=== PATIENT | female | born 1990 | race Caucasian/White ===

== ENCOUNTER 2018-01-05 22:39 | Emergency (ER) | payer OTHER ==
--- NOTE | 2018-01-05 23:35 | RAD ---
EXAM: CT Head Without Intravenous Contrast EXAM DATE/TIME: 01/05/2018 11:17 PM CLINICAL HISTORY: 27 years old, female; Injury or trauma; Fall; Additional info: Fall - head injury - + loc TECHNIQUE: Axial computed tomography images of the head/brain without intravenous contrast. All CT scans at this facility use at least one of these dose optimization techniques: automated exposure control; mA and/or kV adjustment per patient size (includes targeted exams where dose is matched to clinical indication); or iterative reconstruction. COMPARISON: No relevant prior studies available. FINDINGS: Brain: Normal. No hemorrhage. No significant white matter disease. No edema. Ventricles: Normal. No ventriculomegaly. Bones/joints: Normal. No acute fracture. Sinuses: Normal as visualized. No acute sinusitis. Mastoid air cells: Normal as visualized. No mastoid effusion. Soft tissues: Normal. IMPRESSION: No acute intracranial pathology. To contact [facility] with a general question: [facility] - [phone] For direct physician to physician contact: Physician Hotline - [phone] [facility] ([facility] Facility ID #[id number])
[2018-01-05 23:50] LABS: ABS Basophils 0.1 10^3/ul (0-0.2); ABS Eosinophils 0.2 10^3/ul (0-0.6); ABS Lymphocytes 1.6 10^3/ul (1.0-4.8); ABS Monocytes 0.6 10^3/ul (0-0.8); ABS Neutrophils 7.9 10^3/ul (1.5-7.7); ABS Nucleated RBC 0 10^3/ul; Eosinophil % 1.5 % (0-6); Hematocrit 39 % (35-47); Hemoglobin 13.2 g/dl (12.0-16.0); Lymphocyte % 15.1 % (25-47); Mean Corpuscular HGB Conc 34 g/dl (31-36); Mean Corpuscular Hemoglobin 31 pg (27-31); Mean Corpuscular Volume 92 fL (80-97); Mean Platelet Volume 9.5 um3 (7.4-10.4); Nucleated Red Blood Cells % 0.1; Platelet Count 137 10^3/ul (150-450); Red Blood Count 4.27 10^6/ul (4.00-5.40); Red Cell Distribution Width 13 % (10.5-15); White Blood Count 10.3 10^3/ul (3.5-10.8)
[2018-01-06 00:08] LABS: EGFR Non-African American 84.8 (>60)
[2018-01-06 01:02] VITALS: BP 112/82
--- NOTE | 2018-01-06 01:32 | ED ---
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 She states she was outside smoking a cigarette "very fast" when she began to feel lightheaded. Endorses positive LOC. She does not recall falling, however she awoke on the ground. Others were at her side stating she fell back and hit the posterior scalp and incurred a posterior scalp laceration. She endorses a headache currently a 3/, constant and throbbing. She states she has had previous syncopal episodes, but usually secondary to dehydration. She's never had a syncopal episode while smoking a cigarette. Last echo episode was approximately 3/10 years ago. She denies any known cardiac history. She is an albuterol inhaler but has not used it for over 3 months she has not required it. - History Of Current Complaint Chief Complaint: EDSyncope Time Seen by Provider: 01/05/18 22:51 Hx Obtained From: Patient Onset/Duration: Sudden Onset Timing: Constant Associated Head Trauma: Yes Aggravating Factor(s): Nothing Alleviating Factor(s): Nothing Associated Signs And Symptoms: Negative - Risk Factors Cardiac Risk Factors: Negative Risk Factor(s): Negative - Allergies/Home Medications Allergies/Adverse Reactions: Allergies Allergy/AdvReac Type Severity Reaction Status Date / Time No Known Allergies Allergy Verified 01/05/18 22:47 Home Medications: Home Medications NK [No Home Medications Reported] 01/05/18 [History Confirmed 01/05/18] PMH/Surg Hx/FS Hx/Imm Hx Previously Healthy: Yes - Immunization History Hx Pertussis Vaccination: No Immunizations Up to Date: Yes Infectious Disease History: Yes Infectious Disease History: Denies: Traveled Outside the [place] in Last 30 Days - Social History Occupation: Unemployed Lives: Alone - correctional facility Alcohol Use: None Hx Substance Use: No Substance Use Type: Reports: None Smoking Status (MU): Light Every Day Tobacco Smoker Review of Systems Constitutional: Negative Negative: Fever, Chills, Fatigue, Skin Diaphoresis Negative: Palpitations, Chest Pain Negative: Shortness Of Breath, Cough Negative: Abdominal Pain, Vomiting, Diarrhea, Nausea Negative: Arthralgia, Myalgia Positive: Other - 4.5cm laceration posterior scalp Neurological: Negative All Other Systems Reviewed And Are Negative: Yes Physical Exam Triage Information Reviewed: Yes Vital Signs On Initial Exam: Initial Vitals Temp Pulse Resp BP Pulse Ox 97.6 F 58 16 108/78 98 01/05/18 22:40 01/05/18 22:40 01/05/18 22:40 01/05/18 22:40 01/05/18 22:40 Vital Signs Reviewed: Yes Appearance: Positive: Well-Appearing, Well-Nourished Skin: Positive: Skin Color Reflects Adequate Perfusion, Other - 4.5cm laceration posterior scalp Head/Face: Positive: Normal Head/Face Inspection Eyes: Positive: EOMI, MELI, Conjunctiva Clear Neck: Positive: Supple, Nontender, No Lymphadenopathy Respiratory/Lung Sounds: Positive: Clear to Auscultation, Breath Sounds Present Cardiovascular: Positive: RRR, Pulses are Symmetrical in both Upper and Lower Extremities Musculoskeletal: Positive: Strength/ROM Intact Neurological: Positive: Sensory/Motor Intact, Alert, Oriented to Person Place, Time, Speech Normal Psychiatric: Positive: Normal, Affect/Mood Appropriate AVPU Assessment: Alert Diagnostics - Vital Signs Vital Signs Temp Pulse Resp BP Pulse Ox 01/06/18 01:21 97.5 F 62 12 112/82 98 01/06/18 01:00 61 12 98 01/06/18 00:55 70 17 112/82 98 01/06/18 00:25 55 12 93/61 99 01/06/18 00:00 62 20 97 01/05/18 23:55 53 20 110/61 98 01/05/18 23:26 64 16 108/53 99 01/05/18 23:00 56 100 01/05/18 22:59 54 100 01/05/18 22:55 129/90 01/05/18 22:40 97.6 F 58 16 108/78 98 - Laboratory Lab Results: Lab Results 01/05/18 01/05/18 01/05/18 Range/Units 23:37 23:37 23:37 WBC 10.3 (3.5-10.8) 10^3/ul RBC 4.27 (4.00-5.40) 10^6/ul Hgb 13.2 (12.0-16.0) g/dl Hct 39 (35-47) % MCV 92 (80-97) fL MCH 31 (27-31) pg MCHC 34 (31-36) g/dl RDW 13 (10.5-15) % Plt Count 137 L (150-450) 10^3/ul MPV 9.5 (7.4-10.4) um3 Neut % (Auto) 76.3 (38-83) % Lymph % (Auto) 15.1 L (25-47) % [place] % (Auto) 6.3 (0-7) % Eos % (Auto) 1.5 (0-6) % Baso % (Auto) 0.8 (0-2) % Absolute Neuts (auto) 7.9 H (1.5-7.7) 10^3/ul Absolute Lymphs (auto) 1.6 (1.0-4.8) 10^3/ul Absolute Monos (auto) 0.6 (0-0.8) 10^3/ul Absolute Eos (auto) 0.2 (0-0.6) 10^3/ul Absolute Basos (auto) 0.1 (0-0.2) 10^3/ul Absolute Nucleated RBC 0 10^3/ul Nucleated RBC % 0.1 Sodium 138 (135-145) mmol/L Potassium 4.1 (3.5-5.0) mmol/L Chloride 106 (101-111) mmol/L Carbon Dioxide 27 (22-32) mmol/L Anion Gap 5 (2-11) mmol/L BUN 13 (6-24) mg/dL Creatinine 0.81 (0.51-0.95) mg/dL Est GFR ( Amer) 102.6 (>60) Est GFR (Non-Af Amer) 84.8 (>60) BUN/Creatinine Ratio 16.0 (8-20) Glucose 104 H (70-100) mg/dL Lactic Acid 1.0 (0.5-2.0) mmol/L Calcium 9.6 (8.6-10.3) mg/dL Magnesium 2.2 (1.9-2.7) mg/dL Total Bilirubin 0.40 (0.2-1.0) mg/dL AST 18 (13-39) U/L ALT 17 (7-52) U/L Alkaline Phosphatase 48 (34-104) U/L Troponin I 0.00 (<0.04) ng/mL Total Protein 6.8 (6.4-8.9) g/dL Albumin 4.9 (3.2-5.2) g/dL Globulin 1.9 L (2-4) g/dL Albumin/Globulin Ratio 2.6 (1-3) TSH 3.39 (0.34-5.60) mcIU/mL Result Diagrams: 01/05/18 23:37 01/05/18 23:37 Lab Statement: Any lab studies that have been ordered have been reviewed, and results considered in the medical decision making process. Course/Dx Course Of Treatment: Patient appears well on arrival. There is a 4.5 cm laceration to the posterior scalp. Endorses a 3/10 headache. Due to positive LOC and syncopal episode, CT brain obtained. No intracranial pathology is noted. Labs obtained which are WNL. Irrigation and cleansing of the wound. 4 christina placed. Staple removal in 10 days. - Diagnoses Provider Diagnoses: Laceration of scalp, Head injury, Syncope Discharge - Sign-Out/Discharge Documenting (check all that apply): Patient Departure - Discharge Plan Condition: Stable Disposition: HOME Patient Education Materials: Staple Care (ED) Referrals: Samina Gutierrez [Primary Care Provider] - Additional Instructions: Staple removal in 10 days approximately 4x3cm "Y" shape 4 christina placed Keep the bandage applied until tomorrow You may shower tomorrow Labs and CT brain If you need additional information, please request a release of information - Billing Disposition and Condition Condition: STABLE Disposition: Home
== END 2018-01-06 01:21 | disposition home or self-care (01) ==
LOC: ED 22:39
DX: S01.01XA Laceration without foreign body of scalp, initial encounter (principal); S09.90XA Unspecified injury of head, initial encounter; R55 Syncope and collapse; W19.XXXA Unspecified fall, initial encounter; Y92.9 Unspecified place or not applicable
CPT/HCPCS: 12002; 36415; 70450; 80053; 83605; 83735; 84443; 84484; 85025; 93005; 99282